=== PATIENT | female | born 1965 | race Caucasian/White ===

== ENCOUNTER 2018-08-11 22:23 | Emergency (ER) | payer MEDICAID ==
[~2018-08-11] VITALS: Ht 167.6 cm; Wt 68.0 kg
[2018-08-11 22:57] VITALS: BP 138/75
[2018-08-11] MEDS ORDERED: IBUPROFEN 800 MG TAB PO ONE (23:00)
== END 2018-08-12 01:02 | disposition home or self-care (01) ==
LOC: ER 22:33
DX: S63.91XA Sprain of unspecified part of right wrist and hand, initial encounter (principal); V83.9XXA Unspecified occupant of special industrial vehicle injured in nontraffic accident, initial encounter; Y93.89 Activity, other specified; Y92.89 Other specified places as the place of occurrence of the external cause; Y99.8 Other external cause status
CPT/HCPCS: 73130